=== PATIENT | male | born 1985 | race Caucasian/White ===

== ENCOUNTER 2025-03-23 17:57 | Emergency (ER) | payer BC, SELFPAY ==
--- OUTSIDE RECORDS SUMMARY | 2025-03-23 18:00 | XMS_ITS | Clinical Summary ---
Author Organization [facility] Address [address] [place] [id number] Care Team Providers Care Art Psychotherapist Or Therapist Name Role Phone John Jenkins MD Primary Care Provider Source Comments You are receiving this document as you are listed as the primary care provider,follow-up provider, or the patient has been referred to you for consultation.This is in compliance with the Medicare and[facility] EHR Incentive [facility],which states Providers who transition their patient to another setting of careor provider of care or refers their patient to another provider of care shouldprovide summary care record for each transition of care or referral. [facility] Allergies No known active allergies Medications traMADol (AKA ULTRAM) 50 MG tablet Take 1 tablet by mouth every 6 hours as needed for Pain. 56 tablet 0 5 Active HYDROcodone-florina taminophen (NORCO) 5-325 MG tablet Take 1-2 Tabs by mouth every 4 hours as needed for Pain. Active methylPREDNISol one (MEDROL 21 TABLET DOSEPACK) 4 MG tablet Follow package directions 21 Tab 0 6 Active methocarbamol (ROBAXIN) 500 MG tablet Take 1 Tab by mouth two times daily as needed for Other. 20 Tab 0 6 Active Active Problems Problem Noted Date Diagnosed Date Right ankle pain 12/04/2014 Social History Tobacco Use Types Packs/Day Years Used Date Smoking Tobacco: Never Sex and Gender Information Value Date Recorded Sex Assigned at Not on file Legal Sex Male 7:32 AM CDT Gender Identity Not on file Sexual Orientation Not on file Last Filed Vital Signs Vital Sign Reading Time Taken Comments Blood Pressure 138/75 06/20/2016 3:24 PM CDT Pulse 83 06/20/2016 3:24 PM CDT Temperature 36.7 C (98.1 F) 06/20/2016 3:24 PM CDT Respiratory Rate 12 06/20/2016 3:24 PM CDT Oxygen Saturation 98% 06/20/2016 3:24 PM CDT Inhaled Oxygen Concentration - - Weight 99.8 kg (220 lb) 01/22/2015 9:55 AM CDT Height 172.1 cm (5' 7.75) 01/22/2015 9:55 AM CD T Body Mass Index 33.7 01/22/2015 9:55 AM CDT Plan of Treatment Health Maintenance Due Date Last Done Comments Hep C Screening (Preventive Services) 1987 HIV Screening (Preventive Services) 2003 Adult Preventive Visit 2005 DTaP/Tdap/Td Vaccine (1 - Tdap) 2006 HepB Vaccine (1) 2006 Cholesterol 2022 COVID-19 Vaccine (1 - 2023-2 5 season) 2024 Influenza Vaccine (#1) 2025 Zoster/Shingles Vaccine (1 of 2) 2037 HPV Vaccine Aged Out No longer eligi ble based on patient's age to complete this topic HepA Vaccine Aged Out No longer eligi ble based on patient's age to complete this topic Hib Vaccine Aged Out No longer eligi ble based on patient's age to complete this topic IPV (Polio) Vaccine Aged Out No longe r eligible based on patient's age to complete this topic MCV4 Vaccine Aged Out No longer eligi ble based on patient's age to complete this topic Meningococcal B Vaccine Aged Out No l onger eligible based on patient's age to complete this topic Pneumococcal Vaccine Aged Out No long er eligible based on patient's age to complete this topic Insurance [facility] [place] [id number] Care Teams Art Psychotherapist Or Therapist Relationship Specialty Start Date End Date John Jenkins MD [address] [id number] PCP - General 10/06/14
--- OUTSIDE RECORDS SUMMARY | 2025-03-23 18:00 | XMS_ITS | Clinical Summary ---
Author Organization [facility] Address [address] [place] [id number] Care Team Providers Care Rock Crusher Name Role Phone Pcp, No Primary Care Provider Unavailabl e Allergies Active Allergy Reactions Criticality Noted Date Comments Dust Mites Shortness Of Breath Medium 03/01/2023 Medications cholecalciferol , Vitamin D3, 5,000 unit tab tabletIndicatio ns:Vitamin D deficiency Take 1 Tablet (5,000 units) by mouth once daily. Take with food to enhance absorption, ideally a healthy source of fat (eggs, nuts / nut butter, avocado, etc). Continue dose for 3 months. Will recheck labs at that time. 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 Reviewed his [employer] data (11 different prescribers and 5 pharmacies in the past 12 months) 03/10/2018. Cannabis use disorder Resolved Problems Problem Noted Date Diagnosed Date Resolved Date Drug-seeking behavior 03/23/20172022 Overview (03/23/2017): See waste salvager scanned document. Multiple providers, multiple prescriptions. Malingering 03/23/2017 07/04/2023 Overview (05/27/2022): Overview: Overview: See waste salvager scanned document. Multiple providers, multiple prescriptions. Chronic pain syndrome 02/15/20172022 Tattoo 11/08/2015 07/04/2023 Arthralgia of ankle 12/04/2014 07/04/20 23 Lymphadenopathy 09/29/2014 07/04/2023 Overactive child 12/23/2010 07/04/2023 Overview (05/27/2022): Overview: ADHD Immunizations Immunization Administration Dates Next Due DTaP 11/22/2008 Influenza Virus, Unspecified 05/22/2016 Influenza, IIV3 (Age 6-35 mos) 06/29/2017,2013 Influenza, IIV4 (=>6mos) MDV 09/02/2015 MMR 10/08/2013,01/09/2000 Td (Age >=7 Years) 09/14/2011,01/09/2000 Tdap 10/24/2016,04/09/2012,11/22/2008 Family History Medical History Relation Name Comments Good Health Father Good Health Mother Cancer-breast No Family History Relation Name Status Comments Father Alive Mother Alive Social History Tobacco Use Types Packs/Day Years Used Date Smoking Tobacco: Former Cigarettes Smokeless Tobacco: Never Tobacco Cessation:Counseling Given: Not Answered Comments:Spiritual Alcohol Use Standard Drinks/Week Comments Not Currently 0 (1 standard drink = 0.6 oz pur e alcohol) PHQ-2 Answer Date Recorded PHQ-2 TOTAL SCORE 2 08/29/2023 Social Connections Answer Date Recorded Frequency of Communication with Friends and Fami ly 4 05/29/2023 Alcohol Use Answer Date Recorded How often do you have a drink containing alcohol ? 1 03/27/2023 Average Number of Drinks Not on file 023 Frequency of Binge Drinking Not on file 03/10 Financial Resource Strain Answer Date R ecorded Difficulty of Paying Living Expenses 2 05/29/2023 Difficulty of Paying Living Expenses 1 05/29/2023 Food Insecurity Answer Date Recorded Worried About Running Out of Food in the Last Ye ar 1 05/29/2023 Transportation Needs Answer Date Record ed Lack of Transportation (Medical) 1 05/29/2023 Housing Stability Answer Date Recorded Unable to Pay for Housing in the Last Year 1 05/29/2023 Sex and Gender Information Value Date Recorded Sex Assigned at Not on file Legal Sex Male 5:22 AM 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 Gender Identity Not on file Sexual Orientation Not on file Obstetrics History Last Filed Vital Signs Vital Sign Reading Time Taken Comments Blood Pressure 126/82 11/19/2023 11:00 AM CDT Pulse 60 11/19/2023 11:00 AM CDT Temperature 35.8 C (96.4 F) 01/29/2023 8:00 AM CDT Respiratory Rate 16 01/29/2023 8:00 AM CDT Oxygen Saturation 98% 05/02/2023 10:50 AM CDT Inhaled Oxygen Concentration - - Weight 98 kg (216 lb) 11/19/2023 11:00 AM CDT Height 174 cm (5' 8.5) 11/19/2023 11:00 AM CDT Body Mass Index 32.36 11/19/2023 11:00 AM CDT Plan of Treatment Health Maintenance Due Date Last Done Comments HIV for age 15-65 2002 Hepatitis C screening for age 18-79 2005 Hepatitis B series for 19+ (1 of 3 - 19+ 3-dose series) 2006 COVID-19 vaccine series (2023- season) 2024 Depression screening for age 12+ 08/30/2024 08/30/2023, 08/29/2023, 08/01/2023, Additional history exists BMI (ht and wt on same day) for age 18+ 11/18/2024 11/19/2023, 09/17/2023, 05/02/2023, Additional history exists Influenza Vaccine (#1) 2025 7, 05/22/2016, 09/02/2015, Additional history exists Tetanus booster 10/24/2026 10/24/2016, 03/12, 09/14/2011, Additional history exists Lipids for age 35-44 01/03/2028 01/02/2023 Pneumococcal series for age 6-49 Aged Out No longer eligible based on patient's age to complete this topic Procedures Procedure Name Priority Date/Time Associated Diagnosis Comments LIPID PANEL Early AM 01/02/2023 8:40 AM CDT from Last 3 Months or Most Recently Relevant to Health Maintenance Results * (ABNORMAL) Lipid Panel (01/02/2023 8:40 AM CDT) CHOLESTEROL,TOTAL 193 mg/dL 023 9:59 AM CDT [facility] Comment: Cholesterol, Total Reference Ranges Desirable <200 mg/dL Borderline 200-239 mg/dL High >=240 mg/dL TRIGLYCERIDES 129 <150 mg/dL 01/02/2023 9:59 AM CDT [facility] HDL CHOLESTEROL 62 >40 mg/dL 9:59 AM CDT [facility] NON-HDL CHOLESTEROL 131 <145 mg/dl 01/02/2023 9:59 AM CDT [facility] CHOL/HDL RATIO 3.11 <4.50 01/02/2023 9:59 AM CDT [facility] LDL CHOLESTEROL 105 <=130 mg/dL 01/02/2023 9:59 AM CDT [facility] VLDL CHOLESTEROL 26(L) >30 mg/dL 01/03/20 23 9:59 AM CDT [facility] PROVIDER ORDERED STATUS FASTING 01/02/2023 9:59 AM CDT [facility] Blood BLOOD SPECIMEN / Unknown Venipuncture / Unknown 01/02/2023 8:40 AM CDT 01/02/2023 9:12 AM CDT us Kenneth Vega Labreche [employer]ODITY INDUSTRY ANALYST CHEMISTRY Final Re sult [facility] [address] [place] [address], [place] from Last 3 Months or Most Recently Relevant to Health Maintenance Insurance [employer] [place] [employer] INS [facility] Advance Directives * Full Code (Latest Code Status on File) Date Activated Date Inactivated Comments 01/01/2023 10:50 PM 01/29/2023 3:10 PM Question Answer Comments Code Status Discussion: Other Care Teams Rock Crusher Relationship Specialty Start Date End Date Pcp, No . PCP - General 03/07/23
[2025-03-23 18:08] VITALS: BP 136/92; PULSE 70; RESP 20; TEMP 37; O2SAT 97; BMI 26.2
--- NOTE | 2025-03-23 19:24 | CRLHL7_ITS ---
For Patients: As a result of the Century Cures Act, medical imaging exams and procedure reports are released immediately into your electronic medical record. You may view this report before your referring provider. If you have questions, please contact your health care provider. INDICATION: Right calf pain/swelling for a couple of weeks. TECHNIQUE: Ultrasound venous duplex lower right extremity. Compression venous exam was performed using parker-scale, color Doppler, and spectral Doppler analysis. COMPARISON: None. FINDINGS: Deep veins: Sonographic imaging demonstrates the right common femoral, deep femoral, superficial femoral, popliteal, posterior tibial, peroneal and the contralateral left common femoral veins to be fully compressible with normal color Doppler blood flow. Superficial veins: Greater saphenous vein is fully compressible. No popliteal cyst. Large complex mixed echogenicity collection in the right mid posterior calf in the area the patient`s pain and swelling measuring approximately 16.9 x 2.6 x 6.4 cm. No internal vascular flow or peripheral hyperemia. IMPRESSION: 1. No deep venous thrombosis in the evaluated veins of the right lower extremity. 2. Large complex fluid collection within the right mid posterior calf in the area of the patient`s pain, with findings compatible with a hematoma. No peripheral hyperemia to suggest an abscess. Dictated by Paolo Wolfe MD @ 03/23/2025 9:04:10 PM (Electronically Signed)
--- NOTE | 2025-03-23 19:51 | ED.LOWEXIN ---
HPI - Extremity Injury (Lower) General Date Seen: 03/23/25 Chief Complaint: Extremity Pain/Injury, Lower Stated Complaint: RT leg pain from ankle to calf Time Seen by Provider: 03/23/25 19:00 Source: patient Mode of arrival: ambulatory Limitations: no limitations History of Present Illness HPI Narrative: Patient is a 39-year-old male presenting for right calf pain. States even pain from his right ankle up to his posterior right knee. Is an avid biker and states about a week and half ago after he was done on his bike he started noticing some calf pain the next day. Has not been getting any better and he has noticed some increased swelling to the area shows unsure what was wrong with it. Denies any decreased range of motion of his ankle or knee at this time. Has been able to ambulate in states he still trying to stay active but is not trying to over do it currently. Denies any chest pain or shortness of breath. No other concerns noted. Related Data Home Medications ?Medication ?Instructions ?Recorded ?Confirmed No Known Home Medications 03/23/25 03/23/25 Allergies Allergy/AdvReac Type Severity Reaction Status Date / Time No Known Drug Allergies Allergy Verified 03/23/25 18:08 Review of Systems Narrative: Pertinent systems reviewed and were negative unless stated in HPI Exam Narrative: Exam Narrative: Const: Well-nourished, Well-developed, in mild distress Eyes: PERRL, no conjunctival injection, and symmetrical lids HENT: Atraumatic external nose and ears. Moist mucous membranes. CVS: Dorsalis pedis pulses 2+ and equal in all extremities MSK:Extremities w/o deformity, Normal Active ROM, mild tenderness posterior right upper calf Skin: Warm, Dry. No rashes or lesions. Neuro: Normal Muscle tone, No focal neurological deficits. Psych: Awake, Alert, & Oriented x3. Appropriate mood and affect. Const: Vital Signs, click to edit/add: Vital Signs - 24 hr 03/23/25 18:08 Temperature 98.6 F Pulse Rate [Pulse Oximeter] 70 Respiratory Rate 20 Blood Pressure [Ri ght Upper Arm] 136/92 H Pulse Oximetry 97 Oxygen Delivery Me thod Room Air Course Vital Signs Vital signs: Initial Vital Signs Temperature 98.6 F 03/23/25 18:08 Temperature Source Temporal Artery Scan 03/23/25 18:08 Pulse Rate 70 03/23/25 18:08 Respiratory Rate 20 03/23/25 18:08 Blood Pressure 136/92 H 03/23/25 18:08 Blood Pressure Mean 106 H 03/23/25 18:08 Pulse Oximetry 97 03/23/25 18:08 Oxygen Delivery Method Room Air 03/23/25 18:08 Vital Signs Temperature 98.6 F 03/23/25 18:08 Pulse Rate 70 03/23/25 18:08 Respiratory Rate 20 03/23/25 18:08 Blood Pressure 136/92 H 03/23/25 18:08 Pulse Oximetry 97 03/23/25 18:08 Oxygen Delivery Method Room Air 03/23/25 18:08 Temperature 98.6 F 03/23/25 18:08 Pulse Rate 70 03/23/25 18:08 Respiratory Rate 20 03/23/25 18:08 Blood Pressure 136/92 H 03/23/25 18:08 Pulse Oximetry 97 03/23/25 18:08 Oxygen Delivery Method Room Air 03/23/25 18:08 MDM - Extremity Injury (Lower) MDM Narrative Medical decision making narrative: Patient is a 39-year-old male presenting for right calf pain. This very well could be a muscle strain but considering the intermittent swelling in the link the symptoms are will do a ultrasound to make sure there is no underlying blood clot. As he has for motion do not believe there is any through and through muscle tears or tendon ruptures. Do not believe further imaging would be necessary as his pain is all in the soft tissue and x-rays would not be beneficial. Preliminary ultrasound read shows no signs of a DVT. There is a hematoma. This is likely what is causing the swelling and pain. No signs of infection. He is safe for discharge. Will give him an Peter wrap and inform him to follow up outpatient if it persists. Informed to return for severe worsening pain notable redness over the back of the calf for any other concerning symptoms Discharge Plan Discharge Clinical Impression: Hematoma Patient Disposition: Home, Self-Care Condition: Stable Instructions: Hematoma (ED) Additional Instructions: You have a hematoma in your calf muscle that is likely causing her pain. This was likely caused by muscle strain. Treatment is ice and [id number] pain medication and should resolve on its own. You can also use compression. If it continues to persist for the next few weeks you can follow the primary care provider or orthopedics. If he notice severely worsening pain or redness over the area return for re-evaluation. Do not be surprising he started seen some bruising on your skin. That is likely just the hematoma Prescriptions: No Action No Known Home Medications Follow Up/Referrals: Tnoy Carmona MD [Primary Care Provider, Family Practice] Stand Alone Forms: All At Home Info Instructions
== END 2025-03-23 21:17 | disposition home or self-care (01) ==
LOC: ED 20:51
PROVIDERS: Emergency Provider Student in an Organized Health Care Education/Training Program; PCP Family Medicine
DX: S80.11XA Contusion of right lower leg, initial encounter (principal); M79.604 Pain in right leg
CPT/HCPCS: 93971; 99283; 99284